=== PATIENT | female | born 1980 | race Caucasian/White ===

== ENCOUNTER 2016-04-30 12:02 | Inpatient (IN) | payer OTHER ==
[2016-04-30] MEDS ORDERED: AMMONIA AROMATIC 1 EACH AMP IH ONE (12:33)
[2016-04-30] MEDS ORDERED: LIDOCAINE 1% 30 ML SDV ONE (12:33)
[2016-04-30] MEDS ORDERED: MISOPROSTOL 200 MCG TAB ONE (12:34)
[2016-04-30] MEDS ORDERED: TERBUTALINE SULFATE 1 MG/ML VIAL ONE (12:34)
[2016-04-30] MEDS ORDERED: OXYTOCIN 10 UNIT/ML VIAL ONE (12:34)
[2016-04-30] MEDS ORDERED: OXYTOCIN/RINGERS LACTATE 20 UNIT/1,000 ML BAG IV ONE (12:35)
[2016-04-30] MEDS ORDERED: OXYTOCIN/RINGERS LACTATE 30 UNIT/500 ML BAG IV ONE (12:35)
[2016-04-30] MEDS ORDERED: LIDOCAINE 1% 30 ML SDV SC PRN (12:42)
[2016-04-30] MEDS ORDERED: MINERAL OIL 60 ML OIL TP PRN (12:42)
[2016-04-30] MEDS ORDERED: TERBUTALINE SULFATE 1 MG/ML VIAL IV PRN (12:42)
[2016-04-30] MEDS ORDERED: LR 1,000 ML IV PRN (12:42)
[2016-04-30] MEDS ORDERED: EPSOM SALT 454 GM TP PRN (12:42)
[2016-04-30] MEDS ORDERED: OXYTOCIN/RINGERS LACTATE 1,000 ML IV PRN (12:42)
[2016-04-30] MEDS ORDERED: LR 500 ML IV PRN (12:43)
--- NOTE | 2016-04-30 12:47 | PDGENHP ---
History and Physical - Chief Complaint 35 y.o. at 39 3/7 weeks with SROM - History of Present Illness 35 y.o. female at 39 3/7 weeks with SROM. History Information - Allergies/Home Medication List Allergies/Adverse Reactions: Sulfa (Sulfonamide Antibiotics) Allergy (Intermediate, Verified 08/13/09 11:05) Hives Home Medications: Bcp Unk Dose 07/26/12 [Last Taken Unknown] I have personally reviewed and updated: family history, medical history, social history, surgical history - Past Medical History Additional medical history: Brugada syndrome- Cardiology- patient low risk and safe for normal delivery - Surgical History Reports: no pertinent surgical hx - Family History Additional family history: relative with mental retardation - Social History Smoking Status: Never smoked Alcohol Use: None Drug Use: None Review of Systems ROS: 10pt was reviewed & negative except for what was stated in HPI & below Constitutional: Reports: no symptoms EENMT: Reports: no symptoms Cardiac: Reports: no symptoms Respiratory: Reports: no symptoms Gastrointestinal: Reports: no symptoms Genitourinary: Reports: no symptoms Muscolosketal: Reports: no symptoms Skin: Reports: no symptoms Neurological: Reports: no symptoms Hematologic/Lymphatic: Reports: no symptoms Immunologic/Allergy: Reports: no symptoms Physical Exam Constitutional: no apparent distress Ears, Nose, Mouth, Throat: moist mucous membranes, hearing normal Cardiovascular: regular rate and rhythym Respiratory: no respiratory distress, clear to auscultation Gastrointestinal: soft, non-tender abdomen Genitourinary: no bladder fullness Skin: warm, normal color Musculoskeletal: full muscle strength, normal joint ROM Neurologic: AAOx3, sensation intact bilaterally Psychiatric: interacting appropriately Assessment & Plan Assessment: 35 y.o. at 39 3/7 weeks with SROM and no uterine contractions. Plan: Admit patient to L&D. VS and EFM per protocol. Begin pitocin for augmentation of labor. GBS negative and vertex by US.
--- NOTE | 2016-04-30 12:52 | OBPROG ---
OBG Progress Note Assessment/Plan: Assessment: 35 y.o. at 39 3/7 weeks with SROM clear fluid on 04/30 at approximately 0000. No uterine contractions, no vaginal bleeding noted. Good movement. GBS negative. vertex by US Plan: Admit patient to L&D. EFM and VS per protocol. Begin pitocin for augmentation of labor. 04/30/16 12:49 Subjective: Patient reports leaking small amounts of clear fluid off and on since 0000. Denies uterine contractions or vaginal bleeding. Reports good movement. Current Contraction Pattern: Irregular, Other (Specify) FHR (bpm): 140 FHR Pattern Variability: Moderate FHR Category: 1 Membranes: SROM Amniotic Fluid Color: Clear - Physical Exam General Appearance: WD/WN, no apparent distress Estimated Weight: [id number] EENT: PERRL/EOMI, normal ENT inspection Neck: non-tender, full range of motion, supple Respiratory: chest non-tender, lungs clear Cardiac/Chest: regular rate, rhythm Abdomen: non-tender, soft Membranes: SROM Amniotic Fluid Color: clear Extremities: normal range of motion Skin: normal color, warm/dry Neuro/Psych: alert, normal mood/affect, oriented x 3 ICD10 Worksheet Patient Problems: Problems Problem Status Diagnosed 39 weeks gestation of Acute SROM (spontaneous rupture of membranes) Acute - ICD10 Problem Qualifiers (1) SROM (spontaneous rupture of membranes) (2) 39 weeks gestation of
[2016-04-30] MEDS ORDERED: OXYTOCIN/RINGERS LACTATE 500 ML IV SCH (13:00)
[2016-04-30 14:34] LABS: % IMMATURE GRANULYOCYTES 0.4 % (0.0-1.1); ABSOLUTE IMMATURE GRANULOCYTES 0.05 10^3/uL (0.00-0.10); ADD DIFF? NO; ADD MORPH? NO; ADD SCAN? NO; ATYPICAL LYMPHOCYTE FLAG 0 (0-99); FRAGMENT RBC FLAG 0 (0-99); HEMATOCRIT 40.6 % (38.0-47.0); HEMOGLOBIN 14.5 g/dL (12.6-16.3); LEFT SHIFT FLG 0 (0-99); LIPEMIA HEMOLYSIS FLAG 90 (0-99); MEAN CELL HEMOGLOBIN 32.7 pg (27.9-34.1); MEAN CELL HEMOGLOBIN CONCENTR. 35.7 g/dL (32.4-36.7); MEAN CELL VOLUME 91.4 fL (81.5-99.8); MEAN PLATELET VOLUME 10.8 fL (8.7-11.7); PLATELET CLUMPS FLAG 0 (0-99); PLATELET COUNT 210 10^3/uL (150-400); RED BLOOD CELL COUNT 4.44 10^6/uL (4.18-5.33); RED CELL DISTRIBUTION WIDTH 12.6 % (11.5-15.2)
[2016-04-30] MEDS ORDERED: fentaNYL 100 MCG/2 ML INJ IVP ONE (19:00)
[2016-04-30] MEDS ORDERED: HYDROCORTISONE 0.5% CREAM TP PRN (20:37)
[2016-04-30] MEDS ORDERED: ACETAMINOPHEN 325 MG TAB PO PRN (20:37)
[2016-04-30] MEDS ORDERED: SIMETHICONE 80 MG TAB CHEW PO PRN (20:37)
[2016-04-30] MEDS: IBUPROFEN 600 MG TAB PO PRN (20:39)
--- NOTE | 2016-04-30 20:41 | OBPROC ---
- Labor and Delivery Onset of Contractions Date: 04/30/16 Onset of Contractions Type: Induced Rupture of Membranes Date: 04/30/16 Rupture of Membranes Type: Spontaneous Amniotic Fluid Color: Clear Delivery Type: Spontaneous Placenta Delivery Date: 04/30/16 Placenta Delivery Time: 19:21 Episiotomy/Laceration: 2nd Degree, Sulcus Repair: 3-0 EBL: 350 Complications: None - Medications Labor Augmentation/Induction Meds Used: Pitocin Labor Augmentation/Induction Indication: Other (Specify) (SROM, not in labor) Anesthesia: Local (Specify) (15 ml 1% plain lidocaine for perineal repair) - Info Infant A Delivery Date: 04/30/16 Delivery Time: 19:14 Sex of : Male Score (1 Min): 8 Score (5 Min): 9
[2016-05-01] MEDS: IBUPROFEN 600 MG TAB PO PRN ×4 (02:49→21:17)
--- NOTE | 2016-05-01 08:59 | OBPROG ---
OBG Progress Note Assessment/Plan: Assessment: Pt is a 35 y/o female PPD#1 s/p - doing well, no acute issues Plan: 1) Routine PP care 2) Brugada syndrome - stable, no issues 3) RH+, RI 4) Discharge home tomorrow 05/01/16 08:59 Subjective: Pt has no complaints, ambulating, voiding, pain well controlled. Objective: 04/30/16 12:57 Patient ABO/Rh A POSITIVE 04/30/16 12:57 Temp Pulse Resp BP Pulse Ox 37.0 C 62 16 128/75 H 92 04/30/16 22:40 04/30/16 22:40 04/30/16 22:40 04/30/16 22:40 04/30/16 22:40 Uterine Position/Fundal Height: Umbilicus -2 Uterine Tone: Firm - Physical Exam Estimated Weight: [id number] ICD10 Worksheet Patient Problems: Problems Problem Status Diagnosed 39 weeks gestation of Acute SROM (spontaneous rupture of membranes) Acute
[2016-05-01] MEDS: DOCUSATE SODIUM 100 MG CAP PO PRN (15:25)
[2016-05-01 21:49] VITALS: PULSE 53
[2016-05-02] MEDS: IBUPROFEN 600 MG TAB PO PRN ×2 (03:39→09:31)
--- NOTE | 2016-05-02 08:02 | OBGCSDC ---
General Delivery Information - General Info : 1 Para: 1 Delivery Date: 04/30/16 Delivery Time: 19:14 Delivery Physician/CNM: Nichole Hernandez Admission Date: 04/30/16 Labs: Patient ABO/Rh A POSITIVE 04/30/16 12:57 Hct 40.6 % (38.0-47.0) 04/30/16 12:57 - [place] Info A Sex of : Male Score (1 Min): 8 Score (5 Min): 9 Vaginal - Diagnosis Labor: Induced Rupture of Membranes Type: Spontaneous Amniotic Fluid Color: Clear Repair: 3-0 Complications: None - Operations/Procedures Delivery Type: Spontaneous Anesthesia: Epidural - Delivery EBL: 350 Anesthesia: Local (Specify) (15 ml 1% plain lidocaine for perineal repair) Discharge Information - Discharge Information Discharge Medications: Ibuprofen, Vitamins, Vicodin Complications: PROM and no labor. Needed pitocin for AOL with rapid delivery Condition: Good Instruction/Follow Up: Six Weeks Discharge Physician/CNM: Julee Saldivar Discharge Date: 05/02/16 Dictated: No
[2016-05-02] MEDS: DOCUSATE SODIUM 100 MG CAP PO PRN (09:31)
[2016-05-02 10:30] VITALS: BP 132/73; RESP 16; TEMP 97.5; O2SAT 93
== END 2016-05-02 15:20 | disposition home or self-care (01) | DRG 774 ==
LOC: FLD 12:02 → FOB 22:38
PROVIDERS: ADMIT Obstetrics & Gynecology; ATTEND Obstetrics & Gynecology
PROC: 10E0XZZ Delivery of Products of Conception, External Approach (ICD-10-PCS; principal; 2016-04-30)
PROC: 0KQM0ZZ Repair Perineum Muscle, Open Approach (ICD-10-PCS; principal; 2016-04-30)
PROC: 3E033VJ Introduction of Other Hormone into Peripheral Vein, Percutaneous Approach (ICD-10-PCS; principal; 2016-04-30)
DX: O42.92 Full-term premature rupture of membranes, unspecified as to length of time between rupture and onset of labor (principal); O70.1 Second degree perineal laceration during delivery; O99.413 Diseases of the circulatory system complicating pregnancy, third trimester; I45.81 Long QT syndrome; O09.513 Supervision of elderly primigravida, third trimester; Z37.0 Single live birth; Z3A.39 39 weeks gestation of pregnancy
CPT/HCPCS: J2590; J3105

== ENCOUNTER → 2016-05-13 | Outpatient (CLI) | payer OTHER | LOC: FLACT 13:07 | PROVIDERS: ATTEND Obstetrics & Gynecology | DX: O92.29 Other disorders of breast associated with pregnancy and the puerperium (principal) | CPT/HCPCS: G0463 ==

== ENCOUNTER 2018-06-11 10:46 | Day surgery (SDC) | payer OTHER ==
[2018-06-11] MEDS ORDERED: BUPIVACAINE 0.5% 30 ML SDV ONE (10:58)
[2018-06-11] MEDS ORDERED: LR 1,000 ML IV ONE (11:05)
--- NOTE | 2018-06-11 11:39 | PDANEPAE ---
ANE History of Present Illness Bunion ANE Past Medical History - Cardiovascular History Hx Hypertension: No Hx Arrhythmias: Yes Hx Chest Pain: No Hx Coronary Artery / Peripheral Vascular Disease: No Hx CHF / Valvular Disease: No Hx Palpitations: No Cardiovascular History Comment: LONG QT TYPE 3. BRUGADA SYNDROME. ASYMPTOMATIC ENTIRE LIFE - Pulmonary History Hx COPD: No Hx Asthma/Reactive Airway Disease: No Hx Recent Upper Respiratory Infection: No Hx Oxygen in Use at Home: No Hx Sleep Apnea: No Sleep Apnea Screening Result - Last Documented: Negative - Neurologic History Hx Cerebrovascular Accident: No Hx Seizures: No Hx Dementia: No - Endocrine History Hx Diabetes: No - Renal History Hx Renal Disorders: No - Liver History Hx Hepatic Disorders: No - Neurological & Psychiatric Hx Hx Neurological and Psychiatric Disorders: No - Cancer History Hx Cancer: No - Congenital Disorder History Hx Congenital Disorders: No - GI History Hx Gastrointestinal Disorders: No - Other Health History Other Health History: NEG - Chronic Pain History Chronic Pain: No - Surgical History Prior Surgeries: R KNEE MENISCUS REPAIR. WISDOM TEETH ANE Review of Systems Review of Systems: - Exercise capacity METS (RN): 6 METS ANE Patient History - Allergies Allergies/Adverse Reactions: Sulfa (Sulfonamide Antibiotics) Allergy (Intermediate, Verified 08/13/09 11:05) Hives - Home Medications Home Medications: 1 tab PO DAILY 04/30/16 [Last Taken 04/29/16] - NPO status NPO Since - Liquids (Date): 06/11/18 NPO Since - Liquids (Time): 08:45 NPO Since - Solids (Date): 06/10/18 NPO Since - Solids (Time): 21:00 - Anes Hx Anes Hx: no prior problems (Labor without epidural) - Smoking Hx Smoking Status: Never smoked - Family Anes Hx Family Hx Anesthesia Complications: NEG ANE Labs/Vital Signs - Vital Signs Blood Pressure: 129/79 Heart Rate: 71 Respiratory Rate: 13 O2 Sat (%): 95 Height: 170.18 cm Weight: 77.111 kg ANE Physical Exam - Airway Neck exam: FROM Mallampati Score: Class 2 Mouth exam: normal dental/mouth exam - Pulmonary Pulmonary: no respiratory distress - Cardiovascular Cardiovascular: regular rate and rhythym - ASA Status ASA Status: II ANE Anesthesia Plan Anesthesia Plan: spinal (Will avoid GA and block with local anesthetics. Avoid Zofran. )
[2018-06-11] MEDS ORDERED: MIDAZOLAM 2 MG/2 ML VIAL IVP ONE (12:13)
[2018-06-11] MEDS ORDERED: MIDAZOLAM 2 MG/2 ML VIAL ONE (12:15)
[2018-06-11] MEDS ORDERED: ceFAZolin 2 GM/DEXTROSE 100 ML IV ONE (12:20)
--- NOTE | 2018-06-11 12:20 | PDHPUP ---
History & Physical Update H&P update statement: This history and physical update is based on an assessment of the patient which was completed after admission or registration (within 24 hours), but prior to the surgery/procedure. H&P update: H&P reviewed & patient examined, no change in patient's condition since H&P completed
[2018-06-11] MEDS ORDERED: PROPOFOL/EMULSION 500 MG/50 ML BOTTLE IV ONE (12:24)
[2018-06-11] MEDS ORDERED: fentaNYL 100 MCG/2 ML INJ ONE ×3 (12:24→16:08)
[2018-06-11] MEDS ORDERED: LIDOCAINE 2% 5 ML SDV ONE (12:25)
[2018-06-11] MEDS ORDERED: PROPOFOL 200 MG/20 ML VIAL ONE (12:55)
[2018-06-11] MEDS ORDERED: NALOXONE HCL 0.4 MG/ML INJ IVP PRN (13:32)
[2018-06-11] MEDS ORDERED: DEXAMETHASONE 4 MG/ML VIAL IVP PRN (13:32)
[2018-06-11] MEDS ORDERED: NS 500 ML IV PRN (13:32)
[2018-06-11] MEDS ORDERED: HYDROCODONE/APAP 5/325 TAB PO PRN (13:32)
[2018-06-11] MEDS ORDERED: HYDROmorphONE/DILAUDID 2 MG/ML INJ IVP PRN (13:32)
--- NOTE | 2018-06-11 13:47 | POSTOPPROG ---
Post Op Note Date of Operation: 06/11/18 Surgeon: Marc Irby Pit Recorder: Risa Anesthesiologist: Kimo Anesthesia: IV Sedation, Spinal Pre-op Diagnosis: bunregino, tyrone right Post-op Diagnosis: same Indication: above Procedure: Danielle Bueno Inf/Abcess present in the surg proc area at time of surgery?: No EBL: Minimal
[2018-06-11] MEDS: fentaNYL 100 MCG/2 ML INJ IVP PRN ×3 (14:53→16:16)
[2018-06-11] MEDS ORDERED: DEXAMETHASONE 4 MG/ML VIAL ONE (14:58)
[2018-06-11] MEDS ORDERED: HYDROCODONE/APAP 10/325 TAB ONE (14:59)
[2018-06-11] MEDS ORDERED: HYDROCODONE/APAP 5/325 TAB ONE ×2 (15:16→16:02)
--- NOTE | 2018-06-11 17:10 | GOP ---
[f rep st] OPERATIVE REPORT DATE OF OPERATION: 06/11/2018 SURGEON: Marc Irby MD DIVING FISHER: Thomas Lord SA. ANESTHESIA: Sedation with spinal. PREOPERATIVE DIAGNOSIS: Right foot bunion. POSTOPERATIVE DIAGNOSIS: Right foot bunion. PROCEDURE PERFORMED: 1. Right foot Chevron bunion correction. 2. Right foot [employer] bunionette correction. FINDINGS: SPECIMENS: . ESTIMATED BLOOD LOSS: 5 mL. INDICATIONS: This is a female with a symptomatic bunion and bunionette. We counseled her on the ris ks and benefits of operative intervention as she failed nonoperative treatment and was having signifi cant dysfunction. We discussed the risks of nonunion, malunion, continued pain, recurrence, nerve in jury, wound infection, blood clot, as well as anesthetic complications with her known heart history o esteban Yates. We arranged for this to be done at the hospital and under spinal and IV sedation as recom mended by the hay sorter. She understood the additional risks given her heart conditions. DESCRIPTION OF PROCEDURE: She was taken to the OR, sterilely prepped and draped in usual normal [facility] ion. Time-out was performed verifying the site, side, location, and agreed on by members of the team . The procedure was begun by making an incision over the medial eminence of the great toe. I dissected down, isolated the capsule, freed this, incised the capsule longitudinally, and removed redundant ca psule, removed the medial eminence with a saw, isolated the point for the Chevron, and made this cut. This placed the toe medially, held this with a pin and checked this fluoroscopically, and then held it with a snap-off screw, 13 mm. I shaved the additional bone down. I then closed the remaining ca psule with 0 Vicryl, correcting the toe. I took an x-ray and liked the position clinically and on x- ray. The incision was made laterally over the 5th toe. I isolated the capsule and incised this ____ removed the eminence, made a Chevron, displaced this medially, and then held this with a pin, checked this fluoroscopically, and placed the screw. I like the overall correction. The capsule was closed with 0 Vicryl. Hemostasis was obtained. It was thoroughly irrigated, closed with 2-0 Vicryl , 3-0 Quill, and Dermabond. She was taken to the PACU in stable condition. IMPLANTS: Arthrex snap-off screws x2. COMPLICATIONS: None. DRAINS: None. CONDITION: Stable. /[id number]/MODL
[2018-06-11 17:57] VITALS: BP 111/76
== END 2018-06-11 17:15 | disposition home or self-care (01) ==
LOC: FSGY 10:46
PROVIDERS: ATTEND Orthopaedic Surgery
PROC: 0Q8N0ZZ Division of Right Metatarsal, Open Approach (ICD-10-PCS; principal; 2018-06-11 12:15)
PROC: 0QBN0ZZ Excision of Right Metatarsal, Open Approach (ICD-10-PCS; principal; 2018-06-11 12:15)
DX: M20.11 Hallux valgus (acquired), right foot (principal); M21.621 Bunionette of right foot; M21.611 Bunion of right foot; I45.81 Long QT syndrome
CPT/HCPCS: C1713; J1100; J2250; J2704; J3010